=== PATIENT | female | born 1975 | race Caucasian/White ===

== ENCOUNTER → 2017-01-25 | Outpatient (CLI) | payer BC ==
--- NOTE | 2017-01-25 11:19 | REPMRS ---
Patient History The patient states she had a clinical breast exam in 01/2017. Patient is nulliparous. Family history of prostate cancer in father at age 78, breast cancer in paternal aunt, and breast cancer in paternal half sister at age 56. Took hormonal contraceptives for 20 years. Digital Woman Screen Mammo: January 25, 2017 - Exam #: [id number] Bilateral CC and MLO view(s) were taken. Technologist: Anel Bai, Technologist FINDINGS: There are scattered fibroglandular densities. There is no evidence of cancer on this mammogram. ASSESSMENT: BI-RADS/ACR category 2 mammogram. Benign finding(s). Recommendation Routine screening mammogram of both breasts in 1 year (for women over age 40). This mammogram was interpreted with the aid of an FDA-approved computer-aided dectection system. Electronically Signed By: Orlando Carvajal MD 01/25/17 [id number]
== END ==
LOC: M WHC 09:09
PROVIDERS: ATTEND Nurse Practitioner Family
DX: Z12.31 Encounter for screening mammogram for malignant neoplasm of breast (principal)

== ENCOUNTER → 2017-11-06 | Outpatient (REF) | payer BC | LOC: M SFHCLERA 19:56 | DX: J02.9 Acute pharyngitis, unspecified (principal) ==

== ENCOUNTER → 2017-11-06 | Outpatient (CLI) | payer BC | LOC: M LRY 19:18 | DX: R05 Cough (principal) | CPT/HCPCS: 87880 ==

== ENCOUNTER → 2018-11-04 | Outpatient (CLI) | payer BC ==
--- NOTE | 2018-11-05 08:13 | REP ---
CHEST PA AND LATERAL: 11/04/2018. Comparison: Two-view chest 11/06/2017, CT 01/05/2016. Clinical history: Dyspnea. Prior history pneumonia. Findings: Two views of the frontal and a lateral view show the lungs adequately inflated. CP angles sharply defined without effusion. Increased markings overlying the bases may be artifact from body habitus. The CT in 2015 showed the lung ugarte clear however there is some venous hypertension without pulmonary edema or acute infiltrate. No definite effusion or mass. Heart size not enlarged. The aorta and airway intact. There is no widening the mediastinum. The bony thorax unremarkable. Impression: 1. Some pulmonary venous hypertension without pulmonary edema, pleural effusion or any definite infiltrate. Increased markings in the bases may be due to superimposed chest wall tissues. Heart size normal. CT chest 3 years ago showed the lung ugarte entirely clear. No other finding. Electronically Signed by Casimiro Brown MD 11/05/2018 10:04 A
== END ==
LOC: M LRY 17:05
PROVIDERS: ATTEND Physician Assistant
DX: R06.09 Other forms of dyspnea (principal)

== ENCOUNTER → 2023-03-18 | Outpatient (REF) | payer BC | LOC: M WUC 19:13 | PROVIDERS: ATTEND Physician Assistant | DX: L03.115 Cellulitis of right lower limb (principal) ==

== ENCOUNTER → 2023-03-21 | Outpatient (REF) | payer BC | LOC: M SFHCWOUN 16:51 | PROVIDERS: ATTEND Surgery | DX: L02.415 Cutaneous abscess of right lower limb (principal); I73.9 Peripheral vascular disease, unspecified ==

== ENCOUNTER → 2023-03-21 | Outpatient (REF) | payer BC ==
[2023-03-21 11:46] LABS: BASO # 0.1 10^3/uL (0.0-0.2); BASO % 0.8 % (0.0-1.0); EOS # 0.2 10^3/uL (0.0-0.5); EOS % 2.8 % (0.0-3.0); HEMATOCRIT 43.4 % (36.0-47.0); HEMOGLOBIN 14.2 g/dl (12.0-15.5); LYMPH # 2.3 10^3/uL (1.5-5.0); LYMPH % 30.2 % (24.0-44.0); MEAN CORPUSCULAR HGB CONC 32.7 g/dl (32.0-36.5); MEAN CORPUSCULAR VOLUME 91.8 fl (80.0-96.0); MONO # 0.7 10^3/uL (0.0-0.8); MONO % 9.5 % (2.0-8.0); NEUTROPHILS # 4.3 10^3/uL (1.5-8.5); NEUTROPHILS % 56.3 % (36.0-66.0); PLATELET COUNT, AUTOMATED 196 10^3/uL (150-450); RED BLOOD COUNT 4.73 10^6/uL (4.00-5.40); WHITE BLOOD COUNT 7.6 10^3/uL (4.0-10.0)
== END ==
LOC: M LABWUC 09:34
PROVIDERS: ATTEND Physician Assistant
DX: L03.115 Cellulitis of right lower limb (principal)

== ENCOUNTER → 2023-04-03 | Outpatient (REF) | payer BC ==
[~2023-04-03] MED LIST: ALBU8.5H INH; AZO1CAP PO; BENZ200C70 PO; CALC1TAB74 PO; CHEL50TA2 PO; COLLCAP PO; LISI10TA22 PO; MULT-40 PO; SEMA0.257 SQ; VITA100091 PO; [UNRECOGNIZED DRUG - CODE] PO
== END ==
LOC: M LAB REF 16:03
PROVIDERS: ATTEND Nurse Practitioner Family
DX: R06.02 Shortness of breath (principal)

== ENCOUNTER 2023-04-04 16:44 | Inpatient (IN) | payer BC ==
[~2023-04-04] VITALS: Ht 160 cm; Wt 176.4 kg
[2023-04-04] MEDS ORDERED: HEPARIN SOD (PORCINE) 5000UNITS/ML 1ML VIAL/SYRINGE IV PRN (19:10)
[2023-04-04 19:31] LABS: VENOUS BASE EXCESS -2.8 (-2.0-2.0); VENOUS O2 SATURATION 69.9 % (60.0-80.0); VENOUS PARTIAL PRESSURE O2 37.7 mmHg (30.0-50.0); VENOUS PH 7.408 UNITS (7.330-7.430); VENOUS STANDARD HCO3 21.5 MMOL/L
[2023-04-04 19:40] LABS: BASO # 0.1 10^3/uL (0.0-0.2); BASO % 0.7 % (0.0-1.0); EOS # 0.2 10^3/uL (0.0-0.5); EOS % 1.7 % (0.0-3.0); HEMATOCRIT 45.2 % (36.0-47.0); HEMOGLOBIN 15.4 g/dl (12.0-15.5); LYMPH # 3.1 10^3/uL (1.5-5.0); LYMPH % 34.6 % (24.0-44.0); MEAN CORPUSCULAR HEMOGLOBIN 30.4 pg (27.0-33.0); MEAN CORPUSCULAR HGB CONC 34.1 g/dl (32.0-36.5); MEAN CORPUSCULAR VOLUME 89.2 fl (80.0-96.0); MONO # 0.7 10^3/uL (0.0-0.8); MONO % 7.9 % (2.0-8.0); NEUTROPHILS # 4.9 10^3/uL (1.5-8.5); NEUTROPHILS % 54.7 % (36.0-66.0); PLATELET COUNT, AUTOMATED 226 10^3/uL (150-450); RED BLOOD COUNT 5.07 10^6/uL (4.00-5.40); WHITE BLOOD COUNT 8.9 10^3/uL (4.0-10.0)
[2023-04-04 19:52] LABS: INR 1.09; PARTIAL THROMBOPLASTIN TIME 24.9 SECONDS (24.8-34.2); PROTHROMBIN TIME 13.8 SECONDS (12.5-14.5)
[2023-04-04] MEDS: HEPARIN SOD (PORCINE) 5000UNITS/ML 1ML VIAL/SYRINGE IV ONE (19:55)
[2023-04-04] MEDS: HEPARIN DRIP 25,000 UNITS in IV 1 EA IV SCH (19:58)
[2023-04-04 20:08] LABS: CK-MB VALUE MASS 1.4 NG/ML (<3.6)
[2023-04-04 20:09] LABS: RSV AMPLIFICATION NEGATIVE (NEGATIVE)
[2023-04-04 20:14] LABS: BLOOD UREA NITROGEN 15 MG/DL (9-23); CALCIUM LEVEL 8.9 MG/DL (8.5-10.1); CARBON DIOXIDE LEVEL 20 MMOL/L (20-31); CHLORIDE LEVEL 104 MMOL/L (98-107); CPK CREATINE PHOSPHOKINASE 51 U/L (34-145); CREATININE FOR GFR 0.54 MG/DL (0.55-1.30); GLOMERULAR FILTRATION RATE > 60.0 (>58); GLUCOSE, FASTING 405 MG/DL (60-100); MB/CK RELATIVE INDEX 2.74 (< OR =4); POTASSIUM SERUM 4.4 MMOL/L (3.5-5.1); SODIUM LEVEL 132 MMOL/L (136-145)
[2023-04-04] MEDS: HumuLIN R (REGULAR) INSULIN (NovoLIN R) **100U/ML** PER UNIT SC ONE (21:23)
[2023-04-04] MEDS: cefTRIAXone SOD 2 GM in D5W MINI-BAG PLUS 50 ML IV ONE (21:50)
[2023-04-04] MEDS: ACETAMINOPHEN TAB 650MG DOSE (2X325MG) PO ONE (22:48)
[2023-04-04 22:50] LABS: CK-MB VALUE MASS 1.9 NG/ML (<3.6)
[2023-04-04 22:52] LABS: MB/CK RELATIVE INDEX 3.8 (< OR =4)
[2023-04-05] VITALS (7 sets, daily range): BP systolic 136–138; BP diastolic 88; TEMP 97.1–97.6; O2SAT 88–95
[2023-04-05] MEDS ORDERED: HEPARIN SOD (PORCINE) 5000UNITS/ML 1ML VIAL/SYRINGE IV PRN (00:15)
[2023-04-05] MEDS ORDERED: MOM 30ML SUSPENSION UDC PO PRN (00:15)
[2023-04-05] MEDS ORDERED: MAALOX 30 ML SUSP *UDC PO PRN (00:15)
[2023-04-05] MEDS ORDERED: GLUCOSE 4GM CHEW TABLET PO PRN (00:15)
[2023-04-05] MEDS ORDERED: GLUCAGON INJ 1MG VIAL SC PRN (00:15)
[2023-04-05] MEDS ORDERED: DEXTROSE 50% 50ML SYRINGE IV PRN (00:15)
[2023-04-05] MEDS ORDERED: BENZ200C70 PO (00:37)
[2023-04-05] MEDS ORDERED: COLLCAP PO (00:37)
[2023-04-05] MEDS ORDERED: CALC1TAB74 PO (00:37)
[2023-04-05] MEDS ORDERED: ALBU8.5H INH (00:37)
[2023-04-05] MEDS ORDERED: LISI10TA22 PO (00:37)
[2023-04-05] MEDS ORDERED: [UNRECOGNIZED DRUG - CODE] PO (00:37)
[2023-04-05] MEDS ORDERED: VITA100091 PO (00:37)
[2023-04-05] MEDS ORDERED: CHEL50TA2 PO (00:37)
[2023-04-05] MEDS ORDERED: AZO1CAP PO (00:37)
[2023-04-05] MEDS ORDERED: MULT-40 PO (00:37)
[2023-04-05] MEDS ORDERED: SEMA0.257 SQ (00:37)
[2023-04-05] MEDS ORDERED: HOME MED LIST COMPLETE! XX SCH (00:40)
[2023-04-05] MEDS: ACETAMINOPHEN TAB 650MG DOSE (2X325MG) PO PRN (04:18)
[2023-04-05] MEDS ORDERED: PERCOCET 5MG/325MG TAB PO PRN ×2 (04:20)
[2023-04-05] MEDS: LevoFLOXacin 750 MG TABLET PO SCH (06:34)
[2023-04-05 06:58] LABS: HEMATOCRIT 41.3 % (36.0-47.0); MEAN CORPUSCULAR HEMOGLOBIN 30.1 pg (27.0-33.0); MEAN CORPUSCULAR HGB CONC 33.9 g/dl (32.0-36.5); MEAN CORPUSCULAR VOLUME 88.8 fl (80.0-96.0); PLATELET COUNT, AUTOMATED 196 10^3/uL (150-450); RED BLOOD COUNT 4.65 10^6/uL (4.00-5.40); WHITE BLOOD COUNT 10.6 10^3/uL (4.0-10.0)
[2023-04-05 07:27] LABS: ALBUMIN 2.6 G/DL (3.2-5.2); ALKALINE PHOSPHATASE 88 U/L (46-116); ALT/SGPT 13 U/L (7.0-40); AST/SGOT 14 U/L (<34); BILIRUBIN,TOTAL 0.8 MG/DL (0.3-1.2); BLOOD UREA NITROGEN 15 MG/DL (9-23); CALCIUM LEVEL 8.7 MG/DL (8.5-10.1); CARBON DIOXIDE LEVEL 22 MMOL/L (20-31); CHLORIDE LEVEL 103 MMOL/L (98-107); CREATININE FOR GFR 0.55 MG/DL (0.55-1.30); GLOMERULAR FILTRATION RATE > 60.0 (>58); GLUCOSE, FASTING 358 MG/DL (60-100); MAGNESIUM LEVEL 1.5 MG/DL (1.8-2.4); POTASSIUM SERUM 3.8 MMOL/L (3.5-5.1); SODIUM LEVEL 134 MMOL/L (136-145); TOTAL PROTEIN 6.2 G/DL (5.7-8.2)
[2023-04-05 07:31] LABS: PROCALCITONIN 0.05 ng/ml
[2023-04-05] MEDS: INSULIN LISPRO (NovoLOG) PER UNIT SC SCH ×2 (08:25→21:06)
[2023-04-05] MEDS: DOXYCYCLINE HYCLATE 100MG TABLET PO SCH (08:25)
[2023-04-05] MEDS: DOCUSATE SODIUM 100MG CAPSULE PO SCH (08:27)
[2023-04-05] MEDS: LACTOBACILLUS ACIDOPHILUS CAP (BACID) PO SCH (17:13)
[2023-04-05] MEDS: HumuLIN R (REGULAR) INSULIN (NovoLIN R) **100U/ML** PER UNIT IV STA (19:03)
[2023-04-05] MEDS: HEPARIN DRIP 25,000 UNITS in IV 1 EA IV SCH (20:44)
[2023-04-05] MEDS ORDERED: cefTRIAXone SOD 2 GM in D5W MINI-BAG PLUS 50 ML IV SCH (21:00)
[2023-04-05] MEDS: MAGNESIUM OXIDE 400MG TAB (MAG-OX) PO SCH (21:06)
[2023-04-05] MEDS: MAG SULF 1GM/100ML (MAG RUN) 1 GM in IV 1 EA IV SCH (21:07)
[2023-04-06] VITALS (13 sets, daily range): BP systolic 124–169; BP diastolic 71–91; TEMP 96.1–97.2; O2SAT 91–98
[2023-04-06] MEDS ORDERED: APIXABAN 5 MG TAB (ELIQUIS) PO SCH
[2023-04-06 04:16] LABS: BASO # 0.1 10^3/uL (0.0-0.2); BASO % 0.8 % (0.0-1.0); EOS # 0.3 10^3/uL (0.0-0.5); EOS % 3.6 % (0.0-3.0); HEMATOCRIT 41.1 % (36.0-47.0); HEMOGLOBIN 13.6 g/dl (12.0-15.5); LYMPH # 3.4 10^3/uL (1.5-5.0); LYMPH % 46.4 % (24.0-44.0); MEAN CORPUSCULAR HEMOGLOBIN 29.6 pg (27.0-33.0); MEAN CORPUSCULAR HGB CONC 33.1 g/dl (32.0-36.5); MEAN CORPUSCULAR VOLUME 89.3 fl (80.0-96.0); MONO # 0.6 10^3/uL (0.0-0.8); NEUTROPHILS % 40.6 % (36.0-66.0); PLATELET COUNT, AUTOMATED 205 10^3/uL (150-450); WHITE BLOOD COUNT 7.3 10^3/uL (4.0-10.0)
[2023-04-06 05:41] LABS: BLOOD UREA NITROGEN 12 MG/DL (9-23); CALCIUM LEVEL 8.5 MG/DL (8.5-10.1); CARBON DIOXIDE LEVEL 24 MMOL/L (20-31); CHLORIDE LEVEL 104 MMOL/L (98-107); CREATININE FOR GFR 0.64 MG/DL (0.55-1.30); GLOMERULAR FILTRATION RATE > 60.0 (>58); GLUCOSE, FASTING 303 MG/DL (60-100); MAGNESIUM LEVEL 1.8 MG/DL (1.8-2.4); POTASSIUM SERUM 3.9 MMOL/L (3.5-5.1); SODIUM LEVEL 136 MMOL/L (136-145)
[2023-04-06] MEDS ORDERED: HumuLIN R (REGULAR) INSULIN (NovoLIN R) **100U/ML** PER UNIT IV STA (05:59)
[2023-04-06] MEDS: HumuLIN R (REGULAR) INSULIN (NovoLIN R) **100U/ML** PER UNIT IV STA (06:58)
[2023-04-06] MEDS ORDERED: ELIQ5TAB PO ×2 (08:43→11:21)
[2023-04-06 09:49] LABS: HEMOGLOBIN A1c 12.2 % (4.0-6.0)
[2023-04-06] MEDS: CEFDINIR 300 MG CAP (OMNICEF) PO SCH (09:58)
[2023-04-06] MEDS: DOXYCYCLINE HYCLATE 100MG TABLET PO SCH (09:59)
[2023-04-06] MEDS: APIXABAN 5 MG TAB (ELIQUIS) PO SCH (09:59)
[2023-04-06] MEDS ORDERED: CEFD300CAP PO (11:21)
[2023-04-06] MEDS ORDERED: DOXY100T PO (11:21)
[2023-04-06] MEDS ORDERED: MAGN400T2 PO (11:21)
[2023-04-20] MEDS ORDERED: APIXABAN 5 MG TAB (ELIQUIS) PO SCH (09:00)
== END 2023-04-06 15:10 | disposition home or self-care (01) | DRG 134 ==
LOC: M ED 16:44 → M ED INP 23:46 → ENRESERV 04-05 15:23 → M PCU 04-05 16:27
PROVIDERS: ADMIT Internal Medicine; ATTEND Student in an Organized Health Care Education/Training Program
DX: I26.99 Other pulmonary embolism without acute cor pulmonale (principal); J96.01 Acute respiratory failure with hypoxia; J18.9 Pneumonia, unspecified organism; E11.621 Type 2 diabetes mellitus with foot ulcer; I27.20 Pulmonary hypertension, unspecified; Z68.44 Body mass index [BMI] 60.0-69.9, adult; E66.01 Morbid (severe) obesity due to excess calories; E83.42 Hypomagnesemia; L97.919 Non-pressure chronic ulcer of unspecified part of right lower leg with unspecified severity; I10 Essential (primary) hypertension; Z88.0 Allergy status to penicillin; Z79.899 Other long term (current) drug therapy

== ENCOUNTER → 2023-04-04 | Outpatient (CLI) | payer BC ==
[~2023-04-04] MED LIST changes: +CEFD300CAP PO; +DOXY100T PO; +ELIQ5TAB PO; +ISOVUE-370 76% 100ML VIAL ONE; +MAGN400T2 PO
== END ==
LOC: M PLAIMG 13:09
PROVIDERS: ATTEND Nurse Practitioner Family
DX: R06.02 Shortness of breath (principal); I26.99 Other pulmonary embolism without acute cor pulmonale; R91.8 Other nonspecific abnormal finding of lung field
CPT/HCPCS: 71275; Q9967

== ENCOUNTER 2023-07-11 20:43 | Inpatient (IN) | payer BC ==
[~2023-07-11] VITALS: Ht 162.6 cm; Wt 161.7 kg
[~2023-07-11 20:43] MED LIST changes: -ISOVUE-370 76% 100ML VIAL ONE
[2023-07-11 21:55] LABS: BASO # 0.1 10^3/uL (0.0-0.2); BASO % 0.7 % (0.0-1.0); EOS # 0.1 10^3/uL (0.0-0.5); EOS % 0.8 % (0.0-3.0); HEMATOCRIT 41.2 % (36.0-47.0); HEMOGLOBIN 13.8 g/dl (12.0-15.5); LYMPH # 2.2 10^3/uL (1.5-5.0); LYMPH % 20.5 % (24.0-44.0); MEAN CORPUSCULAR HEMOGLOBIN 30.5 pg (27.0-33.0); MEAN CORPUSCULAR HGB CONC 33.5 g/dl (32.0-36.5); MEAN CORPUSCULAR VOLUME 90.9 fl (80.0-96.0); MONO % 9.1 % (2.0-8.0); NEUTROPHILS # 7.2 10^3/uL (1.5-8.5); NEUTROPHILS % 67.6 % (36.0-66.0); PLATELET COUNT, AUTOMATED 194 10^3/uL (150-450); RED BLOOD COUNT 4.53 10^6/uL (4.00-5.40); WHITE BLOOD COUNT 10.6 10^3/uL (4.0-10.0)
[2023-07-11 22:05] LABS: ERYTHROCYTE SEDIMENTATION RATE 113 mm/hr (0-20)
[2023-07-11 22:24] LABS: BLOOD UREA NITROGEN 20 MG/DL (9-23); CALCIUM LEVEL 9.5 MG/DL (8.5-10.1); CARBON DIOXIDE LEVEL 27 MMOL/L (20-31); CHLORIDE LEVEL 103 MMOL/L (98-107); CREATININE FOR GFR 0.94 MG/DL (0.55-1.30); GLOMERULAR FILTRATION RATE > 60.0 (>58); GLUCOSE, FASTING 186 MG/DL (60-100); POTASSIUM SERUM 4.3 MMOL/L (3.5-5.1); SODIUM LEVEL 137 MMOL/L (136-145)
[2023-07-12 00:10] LABS: PROCALCITONIN 3.35 ng/ml
[2023-07-12] MEDS: CLINDAMYCIN 900 MG in IV 1 EA IV ONE (00:17)
[2023-07-12 02:38] LABS: INR 1.14; PARTIAL THROMBOPLASTIN TIME 30.3 SECONDS (24.8-34.2); PROTHROMBIN TIME 14.3 SECONDS (12.5-14.5)
[2023-07-12] MEDS ORDERED: FLUID PLACE HOLDER IV SCH (02:50)
[2023-07-12] MEDS ORDERED: VANCOMYCIN HCL IV SCH (02:50)
[2023-07-12] MEDS: VANCOMYCIN HCL 1,000 MG, VIAL MATE ADAPTER 1 EACH in D5W 250 ML IV ONE ×2 (03:14→04:07)
[2023-07-12] MEDS ORDERED: GLUCAGON INJ 1MG VIAL SC PRN (03:30)
[2023-07-12] MEDS ORDERED: GLUCOSE 4 GM CHEW PO PRN (03:30)
[2023-07-12] MEDS ORDERED: DEXTROSE 50% 50ML SYRINGE IV PRN (03:30)
[2023-07-12] MEDS: ACETAMINOPHEN 500 MG TAB PO PRN (04:14)
[2023-07-12] MEDS ORDERED: MAGN400T35 PO (04:28)
[2023-07-12] MEDS ORDERED: ELIQ5TAB PO (04:28)
[2023-07-12] MEDS ORDERED: COLLCAP PO (04:28)
[2023-07-12] MEDS ORDERED: SEMA1PEN2 SC (04:28)
[2023-07-12] MEDS ORDERED: HOME MED LIST COMPLETE! XX SCH (04:30)
[2023-07-12] MEDS: IBUPROFEN 800 MG TAB PO PRN (06:09)
[2023-07-12] MEDS: INSULIN LISPRO (NovoLOG) PER UNIT SC SCH ×2 (07:57→20:56)
[2023-07-12 09:14] VITALS: BP 142/92; TEMP 97.5; O2SAT 97
[2023-07-12] MEDS: cefTRIAXone SOD 2 GM in D5W MINI-BAG PLUS 50 ML IV SCH (10:15)
[2023-07-12] MEDS ORDERED: ALBUTEROL 90 MCG/ACT 8GM HFA INHALER INH PRN (11:30)
[2023-07-12] MEDS: APIXABAN 5 MG TAB (ELIQUIS) PO SCH (11:41)
[2023-07-12] MEDS: MAGNESIUM OXIDE 400MG TAB (MAG-OX) PO SCH (11:41)
[2023-07-12] MEDS: VANCOMYCIN HCL 1,000 MG, VIAL MATE ADAPTER 1 EACH in D5W 250 ML IV SCH (11:44)
[2023-07-12 12:00] VITALS: BP 134/83; TEMP 97.2; O2SAT 99
[2023-07-12 20:20] VITALS: BP 140/85; TEMP 97.7; O2SAT 98
[2023-07-13 04:25] VITALS: BP 134/71; TEMP 96.8; O2SAT 98
[2023-07-13 06:53] LABS: HEMOGLOBIN 11.9 g/dl (12.0-15.5); MEAN CORPUSCULAR HEMOGLOBIN 30.2 pg (27.0-33.0); MEAN CORPUSCULAR HGB CONC 33.1 g/dl (32.0-36.5); MEAN CORPUSCULAR VOLUME 91.4 fl (80.0-96.0); PLATELET COUNT, AUTOMATED 185 10^3/uL (150-450); RED BLOOD COUNT 3.94 10^6/uL (4.00-5.40); WHITE BLOOD COUNT 9.1 10^3/uL (4.0-10.0)
[2023-07-13 07:17] LABS: ALBUMIN 2.2 G/DL (3.2-5.2); BLOOD UREA NITROGEN 11 MG/DL (9-23); CALCIUM LEVEL 8.5 MG/DL (8.5-10.1); CARBON DIOXIDE LEVEL 27 MMOL/L (20-31); CHLORIDE LEVEL 101 MMOL/L (98-107); CREATININE FOR GFR 0.52 MG/DL (0.55-1.30); GLOMERULAR FILTRATION RATE > 60.0 (>58); GLUCOSE, FASTING 183 MG/DL (60-100); PHOSPHORUS LEVEL 3.7 MG/DL (2.5-4.9); POTASSIUM SERUM 3.8 MMOL/L (3.5-5.1); SODIUM LEVEL 134 MMOL/L (136-145)
[2023-07-13 07:40] LABS: ATYPICAL LYMPH 10 % (0-5); BASOPHILS 1 % (0-1); EOSINOPHILS 1 % (0-3); LYMPHOCYTES 27 % (16-44); MONOCYTES 3 % (0-5); NEUTROPHILS 56 % (28-66)
[2023-07-13 07:41] LABS: PLATELET ESTIMATE NORMAL (NORMAL)
[2023-07-13] MEDS: VANCOMYCIN HCL 750 MG, VIAL MATE ADAPTER 1 EACH in D5W 250 ML IV SCH (12:11)
[2023-07-13 12:15] VITALS: BP 133/84; TEMP 97.7; O2SAT 98
[2023-07-13] MEDS ORDERED: ACETAMINOPHEN 500 MG TAB PO PRN (12:45)
[2023-07-13] MEDS: VANCOMYCIN HCL 500 MG in D5W MINI-BAG PLUS 100 ML IV SCH (13:17)
[2023-07-13] MEDS: FUROSEMIDE 100MG/10ML VIAL IV ONE (13:17)
[2023-07-13 22:00] VITALS: BP 116/68; TEMP 97.3
[2023-07-13] MEDS: KETOROLAC 30 MG/ML 1ML VIAL IV PRN (22:04)
[2023-07-14 06:00] VITALS: BP 118/70; TEMP 97.9; O2SAT 98
[2023-07-14 07:18] LABS: BASO # 0.1 10^3/uL (0.0-0.2); BASO % 0.8 % (0.0-1.0); EOS # 0.2 10^3/uL (0.0-0.5); EOS % 2.5 % (0.0-3.0); HEMATOCRIT 36.9 % (36.0-47.0); HEMOGLOBIN 12.3 g/dl (12.0-15.5); LYMPH # 2.5 10^3/uL (1.5-5.0); LYMPH % 27.3 % (24.0-44.0); MEAN CORPUSCULAR HEMOGLOBIN 30.1 pg (27.0-33.0); MEAN CORPUSCULAR HGB CONC 33.3 g/dl (32.0-36.5); MEAN CORPUSCULAR VOLUME 90.4 fl (80.0-96.0); MONO # 0.7 10^3/uL (0.0-0.8); MONO % 7.8 % (2.0-8.0); NEUTROPHILS # 5.3 10^3/uL (1.5-8.5); NEUTROPHILS % 57.4 % (36.0-66.0); PLATELET COUNT, AUTOMATED 206 10^3/uL (150-450); RED BLOOD COUNT 4.08 10^6/uL (4.00-5.40); WHITE BLOOD COUNT 9.3 10^3/uL (4.0-10.0)
[2023-07-14 07:42] LABS: ALBUMIN 2.2 G/DL (3.2-5.2); BLOOD UREA NITROGEN 13 MG/DL (9-23); CALCIUM LEVEL 8.6 MG/DL (8.5-10.1); CARBON DIOXIDE LEVEL 25 MMOL/L (20-31); CHLORIDE LEVEL 102 MMOL/L (98-107); CREATININE FOR GFR 0.57 MG/DL (0.55-1.30); GLOMERULAR FILTRATION RATE > 60.0 (>58); GLUCOSE, FASTING 203 MG/DL (60-100); PHOSPHORUS LEVEL 3.5 MG/DL (2.5-4.9); POTASSIUM SERUM 3.7 MMOL/L (3.5-5.1); SODIUM LEVEL 135 MMOL/L (136-145)
[2023-07-14 07:48] LABS: PROCALCITONIN 0.78 ng/ml
[2023-07-14] MEDS: LEVEMIR (INSULIN DETEMIR) 1 UNITS/0.01ML SC SCH (09:57)
[2023-07-14] MEDS: VANCOMYCIN HCL 1,000 MG, VIAL MATE ADAPTER 1 EACH in D5W 250 ML IV SCH (12:41)
[2023-07-14] MEDS: FUROSEMIDE 100MG/10ML VIAL IV ONE (15:50)
[2023-07-14 20:00] VITALS: BP 146/90; TEMP 97.9; O2SAT 97
[2023-07-15 04:00] VITALS: BP 135/85; TEMP 97.5; O2SAT 96
[2023-07-15] MEDS: LevoFLOXacin 750 MG TABLET PO SCH (04:45)
[2023-07-15 06:42] LABS: BASO % 0.6 % (0.0-1.0); EOS # 0.2 10^3/uL (0.0-0.5); EOS % 2.3 % (0.0-3.0); HEMATOCRIT 34.1 % (36.0-47.0); HEMOGLOBIN 11.4 g/dl (12.0-15.5); LYMPH # 1.8 10^3/uL (1.5-5.0); LYMPH % 25.8 % (24.0-44.0); MEAN CORPUSCULAR HEMOGLOBIN 30.5 pg (27.0-33.0); MEAN CORPUSCULAR HGB CONC 33.4 g/dl (32.0-36.5); MEAN CORPUSCULAR VOLUME 91.2 fl (80.0-96.0); MONO # 0.5 10^3/uL (0.0-0.8); MONO % 7.2 % (2.0-8.0); NEUTROPHILS # 4.2 10^3/uL (1.5-8.5); NEUTROPHILS % 60.5 % (36.0-66.0); PLATELET COUNT, AUTOMATED 199 10^3/uL (150-450); RED BLOOD COUNT 3.74 10^6/uL (4.00-5.40)
[2023-07-15 07:05] LABS: BLOOD UREA NITROGEN 11 MG/DL (9-23); CALCIUM LEVEL 8.4 MG/DL (8.5-10.1); CARBON DIOXIDE LEVEL 30 MMOL/L (20-31); CHLORIDE LEVEL 101 MMOL/L (98-107); GLOMERULAR FILTRATION RATE > 60.0 (>58); GLUCOSE, FASTING 171 MG/DL (60-100); POTASSIUM SERUM 4.1 MMOL/L (3.5-5.1); SODIUM LEVEL 137 MMOL/L (136-145)
[2023-07-15 08:38] VITALS: BP 145/81
[2023-07-15] MEDS ORDERED: LEVO1TAB40 PO (09:56)
[2023-07-15] MEDS ORDERED: KETO10TAB PO (09:56)
[2023-07-15] MEDS ORDERED: LASI40TA9 PO (09:56)
== END 2023-07-15 12:00 | disposition home or self-care (01) | DRG 383 ==
LOC: M ED 20:43 → M ED INP 07-12 01:02 → M MS5PR 07-12 08:52
PROVIDERS: ADMIT Internal Medicine; ATTEND Internal Medicine Nephrology
DX: L03.115 Cellulitis of right lower limb (principal); I27.20 Pulmonary hypertension, unspecified; I50.813 Acute on chronic right heart failure; E66.01 Morbid (severe) obesity due to excess calories; L97.219 Non-pressure chronic ulcer of right calf with unspecified severity; I08.1 Rheumatic disorders of both mitral and tricuspid valves; I10 Essential (primary) hypertension; E11.9 Type 2 diabetes mellitus without complications; F41.9 Anxiety disorder, unspecified; Z86.711 Personal history of pulmonary embolism; M72.2 Plantar fascial fibromatosis; Z79.01 Long term (current) use of anticoagulants; Z88.0 Allergy status to penicillin; Z79.899 Other long term (current) drug therapy

== ENCOUNTER → 2023-07-24 | Outpatient (REF) | payer BC ==
[~2023-07-24] MED LIST changes: +KETO10TAB PO; +LASI40TA9 PO; +LEVO1TAB40 PO; +MAGN400T35 PO; +SEMA1PEN2 SC
== END ==
LOC: M LAB REF 16:10
PROVIDERS: ATTEND Nurse Practitioner Family
DX: R70.0 Elevated erythrocyte sedimentation rate (principal)

== ENCOUNTER 2023-08-08 08:46 | Day surgery (SDC) | payer BC ==
[~2023-08-08] VITALS: Ht 162.6 cm; Wt 170.0 kg
[~2023-08-08 08:46] MED LIST changes: +CLINDAMYCIN 900 MG in IV 1 EA IV ONE; +OLME20TA50 PO
[2023-08-08] MEDS ORDERED: LR 1,000 ML IV SCH ×2 (09:30→12:55)
[2023-08-08] MEDS ORDERED: ONDANSETRON 4MG 2ML VIAL As Ordered ONE (10:20)
[2023-08-08] MEDS ORDERED: propofoL 200 MG/20 ML VIAL As Ordered ONE (10:20)
[2023-08-08] MEDS ORDERED: dexmedeTOMIDine (4MCG/ML)200MCG/50ML BTL (PRECEDEX) As Ordered ONE (10:20)
[2023-08-08] MEDS ORDERED: fentaNYL 100 MCG/2 ML INJECTION As Ordered ONE (10:20)
[2023-08-08] MEDS ORDERED: MIDAZOLAM INJ 2MG/2ML VIAL As Ordered ONE (10:21)
[2023-08-08] MEDS ORDERED: LIDOCAINE 2% 100MG/5ML SDV (FOR ANES.) As Ordered ONE (10:28)
[2023-08-08] MEDS ORDERED: ROCURONIUM BROMIDE 50MG/5ML VIAL As Ordered ONE (12:17)
[2023-08-08] MEDS ORDERED: METOCLOPRAMIDE INJ 10MG/2ML VIAL As Ordered ONE (12:17)
[2023-08-08] MEDS: HEPARIN SOD (PORCINE) 5000UNITS/ML 1ML VIAL/SYRINGE SQ ONE (12:25)
[2023-08-08] MEDS: GENTAMICIN SULF 80MG/2ML VIAL As Ordered ONE (12:37)
[2023-08-08] MEDS ORDERED: ACETAMINOPHEN 1000MG 100ML IV BAG As Ordered ONE (12:38)
[2023-08-08] MEDS ORDERED: SUGAMMADEX SODIUM 500 MG/5 ML VIAL (BRIDION) As Ordered ONE (12:38)
[2023-08-08] MEDS ORDERED: oxyCODONE 5MG TAB PO PRN (12:55)
[2023-08-08] MEDS ORDERED: ONDANSETRON 4MG 2ML VIAL IV PRN (12:55)
[2023-08-08] MEDS ORDERED: HYDROMORPHONE HCL 0.5 MG/ 0.5 ML SYRINGE IV PRN (12:55)
[2023-08-08] MEDS ORDERED: fentaNYL 100 MCG/2 ML INJECTION IV PRN (12:55)
[2023-08-08] MEDS ORDERED: PERC5TAB12 PO (14:51)
[2023-08-08] MEDS ORDERED: CLIN150C17 PO (14:57)
[2023-08-08 15:10] VITALS: BP 132/75; TEMP 97.7; O2SAT 100
[2023-08-08] MEDS ORDERED: FLUC150T9 PO (17:11)
== END 2023-08-08 15:19 | disposition home or self-care (01) ==
LOC: M SDC 08:46
PROVIDERS: ATTEND Plastic Surgery Surgery of the Hand
DX: S81.801A Unspecified open wound, right lower leg, initial encounter (principal); X58.XXXA Exposure to other specified factors, initial encounter; Y93.9 Activity, unspecified; Y92.9 Unspecified place or not applicable
CPT/HCPCS: 15002; 15271; 15272; 81025; 87070; 87075; 87076; 87077; 87186; 87205; 88304; C9290; J0131; J0665; J1100; J1580; J2250; J2405; J2765; J3010; Q4100

== ENCOUNTER → 2023-10-03 | Outpatient (CLI) | payer BC ==
[~2023-10-03] MED LIST changes: +CLIN150C17 PO; -CLINDAMYCIN 900 MG in IV 1 EA IV ONE; +FLUC150T9 PO; +PERC5TAB12 PO
== END ==
LOC: M WHC 06:43
PROVIDERS: ATTEND Physician Assistant
DX: I87.311 Chronic venous hypertension (idiopathic) with ulcer of right lower extremity (principal); L97.912 Non-pressure chronic ulcer of unspecified part of right lower leg with fat layer exposed

== ENCOUNTER → 2023-12-25 | Outpatient (CLI) | payer BC ==
[2023-12-27 20:27] LABS: Factor VIII ACTIVITY,CLOTTING 256 % normal (50-180)
[2023-12-28 00:53] LABS: APTT LUPUS 39 sec (<=40); DRVVT SCREEN SECONDS 44 sec (<=45)
[2023-12-28 07:16] LABS: ANTITHROMBIN III ACTIVITY 93 % normal (80-135); Prt C Activity(Chromogenic) 150 % normal (70-180)
[2023-12-28 07:57] LABS: Act Prt C Resist w/FV Defic 4.3 ratio (>=2.1)
[2023-12-28 14:17] LABS: PROTEIN S AG TOTAL 137 % normal (70-140); Protein S Antigen, Free 93 % normal (50-147)
== END ==
LOC: M PLALAB 08:14
PROVIDERS: ATTEND Internal Medicine Hematology
DX: Z51.81 Encounter for therapeutic drug level monitoring (principal); Z79.01 Long term (current) use of anticoagulants

== ENCOUNTER → 2024-01-02 | Outpatient (REF) | payer BC | LOC: M LAB REF 11:33 | PROVIDERS: ATTEND Nurse Practitioner Family | DX: I26.99 Other pulmonary embolism without acute cor pulmonale (principal) ==

== ENCOUNTER → 2024-01-16 | Outpatient (CLI) | payer BC | LOC: M RAD 06:53 | PROVIDERS: ATTEND Physician Assistant | DX: I87.311 Chronic venous hypertension (idiopathic) with ulcer of right lower extremity (principal); L97.912 Non-pressure chronic ulcer of unspecified part of right lower leg with fat layer exposed; R68.89 Other general symptoms and signs ==

== ENCOUNTER → 2024-05-15 | Outpatient (REF) | payer BC | LOC: M SFHCWOUN 14:36 | PROVIDERS: ATTEND Physician Assistant | DX: L02.415 Cutaneous abscess of right lower limb (principal); S81.801A Unspecified open wound, right lower leg, initial encounter; Y92.9 Unspecified place or not applicable; Y93.9 Activity, unspecified; Y99.9 Unspecified external cause status; X58.XXXA Exposure to other specified factors, initial encounter ==

== ENCOUNTER → 2024-08-13 | Outpatient (CLI) | payer BC | LOC: M RAD 07:42 | PROVIDERS: ATTEND Physician Assistant | DX: L97.912 Non-pressure chronic ulcer of unspecified part of right lower leg with fat layer exposed (principal); R68.89 Other general symptoms and signs; S81.801A Unspecified open wound, right lower leg, initial encounter; W18.30XA Fall on same level, unspecified, initial encounter; Y92.009 Unspecified place in unspecified non-institutional (private) residence as the place of occurrence of the external cause ==

== ENCOUNTER → 2024-08-28 | Outpatient (POV) | payer BC ==
[~2024-08-28] VITALS: Ht 160 cm; Wt 161.4 kg
[~2024-08-28] MED LIST changes: +FLUO-290 PO
[2024-08-28 14:05] VITALS: BP 132/88; O2SAT 96
== END ==
LOC: M IRPOV 13:41
PROVIDERS: ATTEND Radiology Diagnostic Radiology
DX: I87.311 Chronic venous hypertension (idiopathic) with ulcer of right lower extremity (principal); Z79.01 Long term (current) use of anticoagulants; Z79.899 Other long term (current) drug therapy; Z86.711 Personal history of pulmonary embolism; Z88.0 Allergy status to penicillin

== ENCOUNTER → 2024-11-04 | Outpatient (CLI) | payer BC ==
[~2024-11-04] MED LIST changes: +MIDAZOLAM INJ 2 MG/2 ML VIAL IV PRN; +NS (Normal Saline) 0.9% 1,000 ML IV SCH; +SODIUM CHLORIDE 0.9% 1000 ML XX SCH
[2024-11-04] MEDS: SODIUM TETRADECYL SULFATE (1%) 20MG/2ML VIAL (SOTRADECOL) IV SCH (08:20)
[2024-11-04 08:26] VITALS: TEMP 97.1
[2024-11-04] MEDS: LIDOCAINE 1% MDV 20 ML VIAL SC SCH (11:34)
[2024-11-04 12:30] VITALS: BP 177/75; O2SAT 97
== END ==
LOC: M IRPRO 08:11
PROVIDERS: ATTEND Registered Nurse School
DX: I87.2 Venous insufficiency (chronic) (peripheral) (principal); L97.919 Non-pressure chronic ulcer of unspecified part of right lower leg with unspecified severity

== ENCOUNTER → 2024-11-06 | Outpatient (CLI) | payer BC ==
[~2024-11-06] MED LIST changes: -MIDAZOLAM INJ 2 MG/2 ML VIAL IV PRN; -NS (Normal Saline) 0.9% 1,000 ML IV SCH; -SODIUM CHLORIDE 0.9% 1000 ML XX SCH
== END ==
LOC: M RAD 11:34
PROVIDERS: ATTEND Radiology Diagnostic Radiology
DX: I87.2 Venous insufficiency (chronic) (peripheral) (principal); L97.319 Non-pressure chronic ulcer of right ankle with unspecified severity; Z98.890 Other specified postprocedural states

== ENCOUNTER → 2024-11-19 | Outpatient (POV) | payer BC ==
[~2024-11-19] VITALS: Ht 160 cm; Wt 161.0 kg
[2024-11-19 11:35] VITALS: BP 144/85; O2SAT 98
== END ==
LOC: M IRPOV 11:27
PROVIDERS: ATTEND Registered Nurse School
DX: Z48.812 Encounter for surgical aftercare following surgery on the circulatory system (principal); L97.919 Non-pressure chronic ulcer of unspecified part of right lower leg with unspecified severity; Z88.0 Allergy status to penicillin

== ENCOUNTER → 2024-12-02 | Outpatient (CLI) | payer BC | LOC: M RAD 11:25 | PROVIDERS: ATTEND Radiology Diagnostic Radiology | DX: I83.008 Varicose veins of unspecified lower extremity with ulcer other part of lower leg (principal) ==

== ENCOUNTER → 2024-12-04 | Outpatient (POV) | payer BC ==
[~2024-12-04] VITALS: Ht 160 cm; Wt 161.0 kg
[2024-12-04 13:25] VITALS: BP 134/74; O2SAT 99
== END ==
LOC: M IRPOV 13:40
PROVIDERS: ATTEND Registered Nurse School
DX: Z48.812 Encounter for surgical aftercare following surgery on the circulatory system (principal); I83.011 Varicose veins of right lower extremity with ulcer of thigh; L97.119 Non-pressure chronic ulcer of right thigh with unspecified severity; R60.0 Localized edema; Z88.0 Allergy status to penicillin